=== PATIENT | female | born 1955 | race Caucasian/White ===

== ENCOUNTER → 2017-05-25 | Outpatient (CLI) | payer OTHER ==
[2017-05-25 09:33] LABS: BLOOD, URINE NEG (NEG); GLUCOSE,URINE NEG (NEG); KETONE, URINE NEG (NEG); NITRITE,URINE NEG (NEG); URINE COLOR YELLOW (YELLW/STRAW)
[2017-05-25 09:51] LABS: ANION GAP 4 MEQ/L (5-15); AST (GOT) 20 U/L (15-37); BASOPHIL # 0.1 TH/MM3 (0-0.2); BASOPHIL % 1.1 % (0.0-2.0); BLOOD UREA NITROGEN 14 MG/DL (7-18); CHLORIDE 104 MEQ/L (98-107); EOSINOPHIL # 0.4 TH/MM3 (0-0.4); EOSINOPHIL % 5.9 % (0.0-4.0); GLOMERULAR FILTRATION RATE 98 ML/MIN (>89); GLUCOSE,FASTING 82 MG/DL (74-99); HEMATOCRIT 45.4 % (35.0-46.0); HEMO FLAGS DIFF FINAL; LYMPH % 42.7 % (9.0-44.0); LYMPHOCYTE # 2.9 TH/MM3 (1.0-4.8); MEAN CELL VOLUME 92.3 FL (80.0-100.0); MEAN CORPUSCULAR HEMOGLOBIN 31.5 PG (27.0-34.0); MEAN CORPUSCULAR HGB CONC 34.2 % (32.0-36.0); MONO % 6.9 % (0.0-8.0); NEUT % 43.4 % (16.0-70.0); PLATELET COUNT 323 TH/MM3 (150-450); POTASSIUM 4.4 MEQ/L (3.5-5.1); RED BLOOD COUNT 4.92 MIL/MM3 (4.00-5.30); RED CELL DISTRIBUTION WIDTH 12.8 % (11.6-17.2); SODIUM (NA) 139 MEQ/L (136-145); WHITE BLOOD COUNT 6.8 TH/MM3 (4.0-11.0)
[2017-05-25 09:52] LABS: ALT (GPT) 33 U/L (10-53)
[2017-05-25 10:18] LABS: ALKALINE PHOSPHATASE 70 U/L (45-117); FREE T4 0.96 NG/DL (0.76-1.46); HDL CHOLESTEROL 88.1 MG/DL (40.0-60.0); LDL CHOLESTEROL 125 MG/DL (0-99); TOTAL BILIRUBIN ADULT 0.3 MG/DL (0.2-1.0)
== END ==
LOC: PLAB 06:55
PROVIDERS: ATTEND Family Medicine
DX: F60.5 Obsessive-compulsive personality disorder (principal); G44.89 Other headache syndrome; K21.9 Gastro-esophageal reflux disease without esophagitis; R53.83 Other fatigue; E55.9 Vitamin D deficiency, unspecified; I48.91 Unspecified atrial fibrillation; M25.551 Pain in right hip; M54.5 Low back pain
CPT/HCPCS: 80053; 80061; 81001; 82306; 82607; 84439; 84443; 85025; 87086

== ENCOUNTER → 2018-03-31 | Outpatient (CLI) | payer OTHER ==
[~2018-03-31] VITALS: Ht 162.6 cm; Wt 58.9 kg
[~2018-03-31] MED LIST: CHLO7.5 PO; CHLORHEXIDINE GLUCONATE 2 % 1 PACK (2 CLOTHS) TOPICAL PRN; DEXTROSE 5% IN WATE 1000ML INJ 1,000 ML IV SCH; FLEC100T PO; IBUP1TAB7 PO; LACTATED RINGER'S 1000 ML IV PRN; METOPROLOL TARTRATE 25 MG TAB PO PRN; OMEGCAP PO; POVIDONE IODINE 5% (ANTISEPSIS KIT) 4 APPLICATIONS EACH NARE PRN; PREV30CA36 PO; PROZ20CA11 PO; SODIUM CHLORID 0.9% 500 ML IV PRN
[2018-03-31 13:40] VITALS: TEMP 97.5
--- NOTE | 2018-03-31 14:00 | MR ---
cc: Naveen Dunham MD, John T MD Doolin, Dina DO DATE: 03/31/2018 PREOPERATIVE DIAGNOSIS: Past history of polyps. POSTOPERATIVE DIAGNOSIS: Past history of polyps with diverticulosis. PROCEDURE PERFORMED: Total colonoscopy. ANESTHESIA: Monitored anesthesia care. SURGEON: Naveen Dunham MD OPERATIVE FINDINGS AND INDICATIONS: This patient has had previous colon polyps. For this reason colonoscopy was recommended. At colonoscopy, she was found to have no polyps. She did have a slightly tortuous and thickened sigmoid colon with diverticulosis, but no polyps or other mucosal lesions were seen. OPERATIVE TECHNIQUE: The patient was placed on the table in the left lateral position, given intravenous monitored anesthesia care and the colonoscope was introduced through the anal canal, taken through the rectum, sigmoid colon, descending colon, transverse colon, and ascending colon to the cecum. The ileocecal valve was seen as was the base of the appendix. The scope was sequentially withdrawn circumferentially to look at the mucosa. Getting a good look at the mucosa, there was some thick stool in the cecum, but most of it was aspirated and a fairly good look was obtained. Scope was eventually withdrawn. The patient tolerated the procedure well and left the GI lab in good condition. Naveen Dunham MD JTT/WARNER , 01:36 PM , 01:59 PM
[2018-03-31 14:04] VITALS: BP 122/60; PULSE 64; RESP 18; O2SAT 100
--- NOTE | 2018-04-01 15:10 | EKG ---
Date Performed: 03/31/2018 Time Performed: 11:42:08 PTAGE: 63 years EKG: SINUS BRADYCARDIA NONSPECIFIC T-WAVE ABNORMALITY BORDERLINE ECG NO PREVIOUS TRACING DOCTOR: Rob Shen Interpretating Date/Time 04/01/2018 15:08:19
== END ==
LOC: HSDC 11:14
PROVIDERS: ATTEND Colon & Rectal Surgery
DX: Z86.010 Personal history of colon polyps (principal); K57.90 Diverticulosis of intestine, part unspecified, without perforation or abscess without bleeding; K21.9 Gastro-esophageal reflux disease without esophagitis; I20.9 Angina pectoris, unspecified; I48.91 Unspecified atrial fibrillation; Z01.810 Encounter for preprocedural cardiovascular examination
CPT/HCPCS: 00812; 93005; G0105; J7120